=== PATIENT | male | born 1950 | race Caucasian/White ===

== ENCOUNTER 2018-12-01 20:48 | Emergency (ER) | payer MEDICARE, OTHER ==
--- NOTE | 2018-12-01 21:21 | ED ---
HPI Chest Pain - HPI Summary HPI Summary: This patient is a 68 year old M brought in by ambulance to [facility] with a chief complaint of intermittent pain in L chest and armpit that began [employer]INE[employer]. The patient rates the pain 0/10 in severity. Symptoms aggravated by nothing. Symptoms alleviated by nothing. Patient reports L upper arm pain and cough. Pt denies any fever, chills, erythema of eyes, sore throat, SOB, abdominal pain, N/ V, dysuria, hematuria, myalgia, edema, rash, or dizziness. - History of Current Complaint Chief Complaint: EDChestPainROMI Time Seen by Provider: 12/01/18 21:08 Hx Obtained From: Patient Onset/Duration: Started Hours Ago, Atraumatic, Still Present Timing: Intermittent Initial Severity: Mild Current Severity: Mild Pain Intensity: 0 Pain Scale Used: 0-10 Numeric Chest Pain Location: Left Lateral Chest Pain Radiates: Yes Chest Pain Radiates To:: Other - L armpit Aggravating Factor(s): Nothing Alleviating Factor(s): Nothing Associated Signs and Symptoms: Positive: Other: - Positive L upper arm pain and cough. Negative fever, chills, erythema of eyes, sore throat, SOB, abdominal pain, N/V, dysuria, hematuria, myalgia, edema, rash, or dizziness - Allergy/Home Medications Allergies/Adverse Reactions: Allergies Allergy/AdvReac Type Severity Reaction Status Date / Time No Known Allergies Allergy Verified 12/01/18 20:52 PMH/Surg Hx/FS Hx/Imm Hx Previously Healthy: Yes Endocrine/Hematology History: Denies: Hx Diabetes, Hx Thyroid Disease Cardiovascular History: Denies: Hx Hypertension Respiratory History: Denies: Hx Asthma, Hx Chronic Obstructive Pulmonary Disease (COPD) GI History: Denies: Hx Ulcer Infectious Disease History: Yes Infectious Disease History: Denies: Hx Hepatitis, Hx Human Immunodeficiency Virus (HIV), Hx of Known/ Suspected MRSA, Hx Shingles, Hx Tuberculosis, Traveled Outside the [place] in Last 30 Days - Family History Known Family History: Positive: Hypertension, Other - Aneurysm - Social History Occupation: Retired Lives: With Family Alcohol Use: None Hx Substance Use: No Substance Use Type: Reports: None Hx Tobacco Use: No Smoking Status (MU): Never Smoked Tobacco Review of Systems Negative: Fever, Chills Negative: Erythema Negative: Sore Throat Positive: Chest Pain Positive: Cough. Negative: Shortness Of Breath Negative: Abdominal Pain, Vomiting, Nausea Negative: hematuria Musculoskeletal: Other - positive L upper arm pain, L armpit pain Negative: Myalgia, Edema Negative: Rash Neurological: Other - Negative dizziness All Other Systems Reviewed And Are Negative: Yes Physical Exam - Summary Physical Exam Summary: Constitutional: Well-developed, Well-nourished, Alert. (-) Distressed Skin: Warm, Dry HENT: Normocephalic; Atraumatic Eyes: Conjunctiva normal Neck: Musculoskeletal ROM normal neck. (-) JVD, (-) Stridor, (-) Tracheal deviation Cardio: Rhythm regular, rate normal, Heart sounds normal; Intact distal pulses; The pedal pulses are 2+ and symmetric. Radial pulses are 2+ and symmetric. (-) Murmur Pulmonary/Chest wall: Effort normal. (-) Respiratory distress, (-) Wheezes, (-) Rales Abd: Soft, (-) tenderness, (-) Distension, (-) Guarding, (-) Rebound Musculoskeletal: (-) Edema. No reproducible discomfort. Full ROM of the left shoulder. Lymph: (-) Cervical adenopathy Neuro: Alert, Oriented x3 Psych: Mood and affect Normal Triage Information Reviewed: Yes Vital Signs On Initial Exam: Initial Vitals Temp Pulse Resp BP Pulse Ox 98.7 F 84 16 132/85 94 12/01/18 20:51 12/01/18 20:51 12/01/18 20:51 12/01/18 20:51 12/01/18 20:51 Vital Signs Reviewed: Yes Diagnostics - Vital Signs Vital Signs Temp Pulse Resp BP Pulse Ox 12/01/18 20:51 98.7 F 84 16 132/85 94 - Laboratory Result Diagrams: 12/01/18 21:37 Lab Statement: Any lab studies that have been ordered have been reviewed, and results considered in the medical decision making process. - Radiology Chest XR Radiology Interpretation Completed By: ED Physician Summary of Radiographic Findings: CXR reveals, per ED physician, no acute disease. - EKG 2120 Cardiac Rate: NL EKG Rhythm: Sinus Rhythm - 77 BPM Summary of EKG Findings: An EKG taken at 2120 reveals nml sinus rhythm at 77 BPM with LBBB and no STEMI. Re-Evaluation - Re-Evaluation First Eval Re-Evaluation Time: 21:33 Change: Unchanged Comment: Patient states he is not aware of previous LBBB. He states his primary care has referred him to a door patcher for a stress test but is unsure why. Chest Pain Course/Dx - Course Course Of Treatment: This patient is a 68 year old M brought in by ambulance to [facility] with a chief complaint of intermittent pain in L chest and armpit that began [employer]. Physical Exam Findings: No reproducible discomfort. Full ROM of the left shoulder. An EKG taken at 2120 reveals nml sinus rhythm at 77 BPM with LBBB and no STEMI. CXR reveals, per ED physician, no acute disease. Bloodwork obtained. In the ED course the patient was given nitroglycerin. Patient will be signed out to Dr. Vegas upon shift change pending evaluation post nitroglycerin. The patient is agreeable with this plan. - Diagnoses Provider Diagnoses: LBBB (left bundle branch block), Chest pain, unspecified Discharge - Sign-Out/Discharge Documenting (check all that apply): Sign-Out Patient Signing out patient TO: aYsh Vegas - Upon shift change pending evaluation after nitroglycerin Patient Received Moderate/Deep Sedation with Procedure: No - Discharge Plan Condition: Stable Referrals: Lenora Barrios MD [Primary Care Provider] - - Attestation Statements Document Initiated by Scribe: Yes Documenting Scribe: Kellee Brumfield Provider For Whom Radha is Documenting (Include Credential): Dr. Jorge Liu MD Scribe Attestation: Kellee Mackay, scribed for Dr. Jorge Liu MD on 12/01/18 at 2146. Status of Scribe Document: Ready
[2018-12-01] MEDS ORDERED: Nitroglycerin TAB 0.4 MG* 0.4 MG TAB SL ONE (21:30)
[2018-12-01 21:43] LABS: ABS Basophils 0.1 10^3/ul (0-0.2); ABS Eosinophils 0.3 10^3/ul (0-0.6); ABS Lymphocytes 0.9 10^3/ul (1.0-4.8); ABS Monocytes 0.6 10^3/ul (0-0.8); ABS Neutrophils 4.5 10^3/ul (1.5-7.7); ABS Nucleated RBC 0 10^3/ul; Eosinophil % 4.4 %; Hematocrit 44 % (36-46); Lymphocyte % 14.3 %; Mean Corpuscular HGB Conc 34 g/dL (31-36); Mean Corpuscular Hemoglobin 31 pg (27-31); Mean Corpuscular Volume 90 fL (80-94); Mean Platelet Volume 7.5 fL (7.4-10.4); Nucleated Red Blood Cells % 0.1; Platelet Count 195 10^3/uL (150-450); Red Blood Count 4.88 10^6 /uL (4.18-5.48); Red Cell Distribution Width 14 % (10.5-15); White Blood Count 6.3 10^3/uL (3.5-10.8)
[2018-12-01 22:00] LABS: Albumin 4.1 g/dL (3.2-5.2); Albumin/Globulin Ratio 1.7 (1-3); BUN/Creatinine Ratio 11.9 (8-20); EGFR African American 80.9 (>60); EGFR Non-African American 66.9 (>60); Globulin 2.4 g/dL (2-4); Potassium 3.9 mmol/L (3.5-5.0); Total Protein 6.5 g/dL (6.4-8.9)
[2018-12-01 22:02] LABS: Troponin I 0.02 ng/mL (<0.04)
--- NOTE | 2018-12-01 22:04 | ED ---
Progress - Progress Note Progress Note: RECEIVING SIGN OUT AT SHIFT CHANGE FROM DR. LIU PENDING RE-EVAL AFTER NITRO. 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 Re-Evaluation - Re-Evaluation First Eval Re-Evaluation Time: 01:48 Change: Improved Course/Dx - Course Course Of Treatment: RECEIVING SIGN OUT AT SHIFT CHANGE FROM DR. LIU PENDING RE-EVAL AFTER NITRO. 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 On re evaluation the pt is asymptomatic. His troponins are flat. EKG is not terribly helpful with the LBBB. I have gone through the pt's history and he describes paroxysms of pain that are very fleeting, lasting only a second or two. This is extremely unlikely to be anginal pain. I believe with neg trop in the setting of pain syndrome for several days it is safe for him to go home and f/u with his regular doctor. - Diagnoses Provider Diagnoses: Atypical chest pain Discharge - Sign-Out/Discharge Documenting (check all that apply): Patient Departure - DC, Receiving Sign-Out Receiving patient FROM: Jorge Liu - PENDING RE-EVAL Patient Received Moderate/Deep Sedation with Procedure: No - Discharge Plan Condition: Good Disposition: HOME Patient Education Materials: Chest Pain (ED) Referrals: Lenora Barrios MD [Primary Care Provider] - 2 Days Additional Instructions: Please call your regular doctor for a followup visit this week. You may need to get a stress test. If your symptoms change or worsen, come back here right away - Billing Disposition and Condition Condition: GOOD Disposition: Home - Attestation Statements Document Initiated by Scribe: Yes Documenting Scribe: April Ross Provider For Whom Radha is Documenting (Include Credential): Dr. Yash Vegas MD Scribe Attestation: I, adán Daltoned for Dr. Yash Vegas MD on 12/02/18 at 0250. Scribe Documentation Reviewed: Yes Provider Attestation: The documentation as recorded by the April lozano accurately reflects the service I personally performed and the decisions made by me, Dr. Yash Vegas MD Status of Scribe Document: Viewed
[2018-12-02 01:36] VITALS: BP 133/83
== END 2018-12-02 02:02 | disposition home or self-care (01) ==
LOC: ED 20:48
DX: R07.89 Other chest pain (principal); I44.7 Left bundle-branch block, unspecified
CPT/HCPCS: 36415; 71045; 80053; 83605; 84484; 85025; 93005; 99285; A9270-GY